=== PATIENT | female | born 1950 | race Caucasian/White ===

== ENCOUNTER 2021-03-03 13:48 | Emergency (ER) | payer MEDICARE ==
[~2021-03-03] VITALS: Ht 157.5 cm; Wt 67.1 kg
[2021-03-03] MEDS ORDERED: EUTHYROX100 MC1 PO (14:34)
[2021-03-03] MEDS ORDERED: HYDCHL12.5 PO (14:34)
[2021-03-03 14:58] LABS: BASOPHILS PERCENT AUTO 0 % (0-2); EOSINOPHILS ABSOLUTE AUTO 0.01 K/mm3 (0.00-0.68); EOSINOPHILS PERCENT AUTO 0 % (0-6); Hemoglobin 12.5 g/dL (11.5-16.0); IMMATURE GRAN ABSOLUTE AUTO 0.01 K/mm3 (0.00-0.10); IMMATURE GRAN PERCENT AUTO 0 % (0-1); LYMPHOCYTES ABSOLUTE AUTO 0.86 K/mm3 (0.84-5.20); LYMPHOCYTES PERCENT AUTO 32 % (21-46); MONOCYTES ABSOLUTE AUTO 0.45 K/mm3 (0.16-1.47); MONOCYTES PERCENT AUTO 17 % (4-13); Mean Corpuscular HGB 31.8 pg (26.0-34.0); Mean Corpuscular HGB Conc 33.8 g/dL (31.5-36.5); Mean Corpuscular Volume 94 fL (80-100); Mean Platelet Volume 10.5 fL (9.1-12.4); NEUTROPHILS ABSOLUTE AUTO 1.34 K/mm3 (1.96-9.15); NEUTROPHILS PERCENT AUTO 50 % (41-73); Platelet Count 147 K/mm3 (150-400); RDW Coefficient Variation 13.3 % (11.7-14.2); RDW Standard Deviation 46.6 fL (35.1-46.3); Red Blood Cell Count 3.93 M/mm3 (3.80-5.20); White Blood Cell Count 2.67 K/mm3 (4.00-11.30)
[2021-03-03 15:13] LABS: Alanine Aminotransfer (ALT/SGP 24 U/L (12-78); Albumin, Blood 3.5 g/dL (3.4-5.0); Alk Phos 76 U/L (50-136); Anion Gap 7 mmol/L (6-16); Aspartate Aminotrans (AST/SGOT 26 U/L (12-37); Bilirubin, Total 0.3 mg/dL (0.1-1.0); Blood Urea Nitrogen 26 mg/dL (8-24); Bun/Creatinine Ratio 25.2 (12.0-20.0); CO2, Blood 27 mmol/L (21-32); Calcium, Blood 8.8 mg/dL (8.5-10.1); Chloride, Blood 102 mmol/L (98-108); Creatinine, Blood 1.03 mg/dL (0.40-1.00); Globulin, Blood 3.4 g/dL (2.2-4.0); Glomerular Filtration Rate 56 (60-); Glucose, Blood 113 mg/dL (70-99); Potassium, Blood 3.9 mmol/L (3.5-5.5); Sodium, Blood 136 mmol/L (136-145); Total Protein, Blood 6.9 g/dL (6.4-8.2); Troponin I <0.015 ng/mL (0.000-0.040)
[2021-03-03 15:23] LABS: BAND PERCENT MAN 3 % (0-8); BASOPHILS PERCENT MAN 0 % (0-2); EOSINOPHILS ABSOLUTE MAN 0.02 K/mm3 (0.00-0.68); EOSINOPHILS PERCENT MAN 1 % (0-6); LYMPHOCYTES PERCENT MAN 30 % (21-46); MONOCYTES ABSOLUTE MAN 0.26 K/mm3 (0.16-1.47); MONOCYTES PERCENT MAN 10 % (4-13); NEUTROPHILS ABSOLUTE MAN 1.57 K/mm3 (1.96-9.15); SEG NEUTROPHILS PERCENT MAN 56 % (41-73); TOTAL CELLS COUNTED 100
== END 2021-03-03 16:36 | disposition home or self-care (01) ==
LOC: ER 13:48
PROVIDERS: Physician Assistant
DX: U07.1 COVID-19 (principal); J44.9 Chronic obstructive pulmonary disease, unspecified; I10 Essential (primary) hypertension
CPT/HCPCS: 36415; 71045; 80053; 84484; 85025; 93005; 93010; 94640; 99285-25

== ENCOUNTER 2021-04-08 12:36 | Inpatient (IN) | payer MEDICARE ==
[~2021-04-08] VITALS: Ht 160 cm; Wt 72.5 kg
[~2021-04-08 12:36] MED LIST: EUTHYROX100 MC1 PO; HYDCHL12.5 PO
[2021-04-08 13:26] LABS: BASOPHILS ABSOLUTE AUTO 0.04 K/mm3 (0.00-0.23); BASOPHILS PERCENT AUTO 1 % (0-2); EOSINOPHILS ABSOLUTE AUTO 0.37 K/mm3 (0.00-0.68); EOSINOPHILS PERCENT AUTO 5 % (0-6); Hematocrit 37.3 % (33.0-51.0); Hemoglobin 12.7 g/dL (11.5-16.0); IMMATURE GRAN ABSOLUTE AUTO 0.01 K/mm3 (0.00-0.10); IMMATURE GRAN PERCENT AUTO 0 % (0-1); LYMPHOCYTES ABSOLUTE AUTO 1.32 K/mm3 (0.84-5.20); LYMPHOCYTES PERCENT AUTO 19 % (21-46); MONOCYTES ABSOLUTE AUTO 0.62 K/mm3 (0.16-1.47); MONOCYTES PERCENT AUTO 9 % (4-13); Mean Corpuscular HGB 31.8 pg (26.0-34.0); Mean Corpuscular Volume 93 fL (80-100); Mean Platelet Volume 10.4 fL (9.1-12.4); NEUTROPHILS ABSOLUTE AUTO 4.63 K/mm3 (1.96-9.15); NEUTROPHILS PERCENT AUTO 66 % (41-73); Platelet Count 272 K/mm3 (150-400); White Blood Cell Count 6.99 K/mm3 (4.00-11.30)
[2021-04-08 13:50] LABS: Alanine Aminotransfer (ALT/SGP 50 U/L (12-78); Albumin, Blood 4.1 g/dL (3.4-5.0); Albumin/Globulin Ratio 1.1 (0.8-1.8); Alk Phos 90 U/L (50-136); Anion Gap 3 mmol/L (6-16); Aspartate Aminotrans (AST/SGOT 30 U/L (12-37); Bilirubin, Total 0.5 mg/dL (0.1-1.0); Blood Urea Nitrogen 15 mg/dL (8-24); Bun/Creatinine Ratio 24.3 (12.0-20.0); CO2, Blood 32 mmol/L (21-32); Calcium, Blood 9.3 mg/dL (8.5-10.1); Chloride, Blood 97 mmol/L (98-108); Creatinine, Blood 0.62 mg/dL (0.40-1.00); Globulin, Blood 3.6 g/dL (2.2-4.0); Glomerular Filtration Rate >60 (60-); Glucose, Blood 101 mg/dL (70-99); Potassium, Blood 4.3 mmol/L (3.5-5.5); Sodium, Blood 132 mmol/L (136-145); Total Protein, Blood 7.7 g/dL (6.4-8.2); Troponin I <0.015 ng/mL (0.000-0.040)
[2021-04-08] MEDS ORDERED: ZOLOFT50 MG PO (16:32)
[2021-04-08] MEDS ORDERED: TELM40 PO (16:34)
[2021-04-08] MEDS ORDERED: BUPROPION XL150 M1 PO (17:55)
[2021-04-08] MEDS ORDERED: Ventolin/Prove6.7 GM INH (17:57)
[2021-04-08] MEDS ORDERED: IPRAT-ALBUT 0.5-3 ML NEB (17:58)
[2021-04-08] MEDS ORDERED: CENTRUM SILVER1 EAC2 PO (18:12)
[2021-04-08] MEDS ORDERED: Vitamin B Comple1 EA PO (18:12)
[2021-04-08] MEDS ORDERED: ZINC50 M3 PO (18:12)
[2021-04-08] MEDS ORDERED: THERA-D2000 UNIT PO (18:13)
[2021-04-08] MEDS ORDERED: EUTHYROX88 MC1 PO (18:14)
--- NOTE | 2021-04-08 19:45 | NUR ---
RECEIVED REPORT FROM NOAH HILTON RN. PT ARRIVED TO 304 VIA GURNEY. PT TRANSFERRED SELF TO BED. RESP EVEN ON 2L VIA NC. AT BEDSIDE. WILL PROVIDE CARE T/O SHIFT. PT ORIENTED TO CALL LT SYSTEM.
--- NOTE | 2021-04-09 02:25 | NUR ---
PER TELE MONITOR PT HR DIPPED DOWN TO 35. ASSESSED PT, PT WOKE UP, ASSISTED HER TO THE BR AND BACK TO BED, HR AT 38. PT SOB, PLACED OXYGEN BACK ON AT 2L VIA NC. PER TELE MONITOR HR TOUCHES TO LOW 40'S THEN BACK DOWN TO THE UPPER 30'S. CALL LT IN REACH.
--- NOTE | 2021-04-09 02:54 | NUR ---
PT LAYING IN BED WITH 2L O2 VIA NC. CALL LT IN REACH.
--- NOTE | 2021-04-09 03:05 | NUR ---
PT IN BED, LIGHTHEADED AT REST AND SOB. CALL LT IN REACH.
--- NOTE | 2021-04-09 03:25 | NUR ---
ORDER RECEIVED TO TRANSFER PT TO ICU WITH PCU STATUS. REPORT CALLED AND GIVEN TO MARCIANO GIFT OFFICER.
--- NOTE | 2021-04-09 03:45 | NUR ---
PT TRANSFERRED TO ICU 12 VIA BED WITH ALL PERSONAL BELONGINGS.
--- NOTE | 2021-04-09 03:53 | NUR ---
DURING TRANSFER PT REPORTED FEELING CHEST DISCOMFORT. NOTIFIED MARCIANO STITCH BURNISHER.
--- NOTE | 2021-04-09 03:59 | NUR ---
CALLED AND NOTIFIED , GENEVIEVE THAT TOM HAD BEEN TRANSFERRED TO ICU ROOM 12 FOR CLOSER MONITORING.
[2021-04-09 05:23] LABS: Adenovirus Not Detected (NOT DETECT); Bordetella pertussis Not Detected (NOT DETECT); Chlamydophila pneumoniae Not Detected (NOT DETECT); Coronavirus 229E Not Detected (NOT DETECT); Coronavirus HKU1 Not Detected (NOT DETECT); Coronavirus NL63 Not Detected (NOT DETECT); Coronavirus OC43 Not Detected (NOT DETECT); Human Metapneumovirus Not Detected (NOT DETECT); Human Rhinovirus/Enterovirus Not Detected (NOT DETECT); Influenza A/2009-H1 Not Detected (NOT DETECT); Influenza A/H1 Not Detected (NOT DETECT); Influenza A/H3 Not Detected (NOT DETECT); Influenza B Not Detected (NOT DETECT); Mycoplasma pneumoniae Not Detected (NOT DETECT); Parainfluenza Virus 1 Not Detected (NOT DETECT); Parainfluenza Virus 2 Not Detected (NOT DETECT); Parainfluenza Virus 3 Not Detected (NOT DETECT); Parainfluenza Virus 4 Not Detected (NOT DETECT); Respiratory Syncytial Virus Not Detected (NOT DETECT); SARS-Cov-2 (COVID-19), BioFire Not Detected (NOT DETECT)
--- NOTE | 2021-04-09 06:21 | NUR ---
ASSUMED CARE/END OF SHIFT SUMMARY PT ARRIVED TO ICU AT 0340 VIA MEDICAL FLOOR BED AND TRANSFERED OVER TO ICU BED VIA SLIDE SHEET. PT IS ALERT/ORIENTED X4 AND ABLE TO MAKE HER NEEDS KNOWN USING THE CALL LIGHT APPROPRIATLY. PT C/O DYSPNEA UPON ARRIVAL TO ICU, RT IN ROOM AND PROVIDED INHALER WHICH PT STATED HELPED; DIMINISHED EXPIRATORY WHEEZES HEARD IN BILAT LOWER BASES; SPO2 >93% ON 2L NC; PRODUCTIVE COUGH NOTED; PT C/O DYSPNEA WITH EXERTION TOO. AFEBRILE. HR HIGH 30'S, LOW 40'S; PACER PADS ON PT AND ZOLL AT BEDSIDE BUT NOT CURRENTLY BEING USED; NO C/O CHEST PAIN. SBP 130-140'S. NPO SINCE ARRIVAL TO ICU; HYPOACTIVE BT; NO C/O NAUSEA. SALINE LOCKED. WILL REPORT TO AM RN WHEN AVAILABLE.
--- NOTE | 2021-04-09 07:32 | NUR ---
Assumed care of this pt this morning. She is a/o x 4 and denies any pain or discomfort. She is very [place]. Her HR remains in the 30-40's and she has the zoll pads in place. She reports some dizziness with movement. She is able to make her needs known and has her call light in reach.
--- NOTE | 2021-04-09 09:15 | NUR ---
The heart center and pacemaker clinics were both called to try and find out if this pt is on the schedule for a pacemaker today. They are not able to confirm if she is so MR Redmond from the heart center said he would call back when he found out the plan. Client Application Support Engineer just completed the ordered echo at the bedside. Pt's HR is currently 41 and she is resting in bed with her eyes closed.
--- NOTE | 2021-04-09 11:01 | NUR ---
Rod Piler is here now and has been updated on the pt status this morning. She is at the bedside explaing the plan for pacemaker placement.
--- NOTE | 2021-04-09 14:48 | NUR ---
Heart center nurse came to transport pt to heart center for pacemaker placement. The was with her and was assisted to the visitor waiting area.
--- NOTE | 2021-04-09 17:24 | NUR ---
Shift Summary Pt has been a/o x 4 all day. She has had no c/o pain but she has been inpatient about the wait time to go the heart center for her pacemaker. She is very [place]. The pt HR was in the 40's all morning dipping down into the 30's at times. The Dr's were notified of her status. Cardiology spoke with her about the pacemaker procedure and she was agreeable. The pt has 6 children, many of which have been calling all day. The son, Trevon has elected to be the main contact and he has been updated. The arrived at the start of visiting hours and he himslef walks with a cane and was assisted via w/c to the visitor waiting area for the length of her procedure. The pt is still in the heart center in procedure.
--- NOTE | 2021-04-09 18:28 | NUR ---
Heart center nurse called to say that they will be bringing the pt back to her room in the next few minutes.
--- NOTE | 2021-04-09 19:00 | NUR ---
ASSUMED CARE ASSUMED CARE OF PATIENT. AWAKE AND ALERT. VISITING WITH . ORIENTED X 3 AND COOPERATIVE WITH CARE. PT IS EXTREMELY HARD OF HEARING. REPOSITIONS SELF IN BED. MONITOR SHOWS PACED RHYTHM, RATE 96-98. BP STABLE. O2 2L NC- SATS STABLE. DENIES SOB OR DYSPNEA. C/O PAIN IN CHEST (PACEMAKER AND PERICARDIAL DRAIN SITES) WITH DEEP BREATHING AND MOVING. LEFT CHEST PACEMAKER SITE NOTED WITH DRSG D/I. PERICARDIAL DRAIN DRAINING TO PLEURIX BOTTLE- SEROUS DRAINAGE. NS INFUSING AT 100CC/HR PER ORDER. SEE SHIFT ASSESSMENT FOR FULL ASSESSMENT.
[2021-04-09 19:28] LABS: Hematocrit 36.9 % (33.0-51.0); Hemoglobin 12.3 g/dL (11.5-16.0)
[2021-04-10 03:38] LABS: BASOPHILS ABSOLUTE AUTO 0.04 K/mm3 (0.00-0.23); BASOPHILS PERCENT AUTO 0 % (0-2); EOSINOPHILS ABSOLUTE AUTO 0.14 K/mm3 (0.00-0.68); EOSINOPHILS PERCENT AUTO 1 % (0-6); Hematocrit 34.4 % (33.0-51.0); Hemoglobin 11.4 g/dL (11.5-16.0); IMMATURE GRAN ABSOLUTE AUTO 0.03 K/mm3 (0.00-0.10); IMMATURE GRAN PERCENT AUTO 0 % (0-1); LYMPHOCYTES ABSOLUTE AUTO 0.96 K/mm3 (0.84-5.20); LYMPHOCYTES PERCENT AUTO 8 % (21-46); MONOCYTES ABSOLUTE AUTO 0.97 K/mm3 (0.16-1.47); MONOCYTES PERCENT AUTO 8 % (4-13); Mean Corpuscular HGB 31.8 pg (26.0-34.0); Mean Corpuscular HGB Conc 33.1 g/dL (31.5-36.5); Mean Corpuscular Volume 96 fL (80-100); Mean Platelet Volume 10.4 fL (9.1-12.4); NEUTROPHILS ABSOLUTE AUTO 10.04 K/mm3 (1.96-9.15); NEUTROPHILS PERCENT AUTO 83 % (41-73); Platelet Count 219 K/mm3 (150-400); RDW Coefficient Variation 13.1 % (11.7-14.2); RDW Standard Deviation 46.5 fL (35.1-46.3); Red Blood Cell Count 3.58 M/mm3 (3.80-5.20); White Blood Cell Count 12.18 K/mm3 (4.00-11.30)
[2021-04-10 03:57] LABS: Alanine Aminotransfer (ALT/SGP 41 U/L (12-78); Albumin, Blood 3.3 g/dL (3.4-5.0); Alk Phos 74 U/L (50-136); Anion Gap 6 mmol/L (6-16); Aspartate Aminotrans (AST/SGOT 30 U/L (12-37); Bilirubin, Total 0.3 mg/dL (0.1-1.0); Blood Urea Nitrogen 13 mg/dL (8-24); CO2, Blood 25 mmol/L (21-32); Calcium, Blood 8.3 mg/dL (8.5-10.1); Chloride, Blood 105 mmol/L (98-108); Creatinine, Blood 0.65 mg/dL (0.40-1.00); Globulin, Blood 3.2 g/dL (2.2-4.0); Glomerular Filtration Rate >60 (60-); Glucose, Blood 118 mg/dL (70-99); Potassium, Blood 4.1 mmol/L (3.5-5.5); Sodium, Blood 136 mmol/L (136-145); Total Protein, Blood 6.5 g/dL (6.4-8.2)
--- NOTE | 2021-04-10 06:39 | NUR ---
SHIFT SUMMARY NO ACUTE CHANGES. SLEPT INTERMITTENTLY. CONTINUES WITH C/O PAIN AT PACEMAKER AND PERICARDIAL DRAIN SITES- MEDICATED WITH NORCO 5/325MG PO X 3 DOSES AND FENTANYL 50MCG IV X 1 DOSE WITH MODERATE RELIEF. MONITOR SHOWS CONTINUED VENTRICULAR PACED RHYTHM, RATE 80s-90s. BP STABLE. AFEBRILE. O2 2LNC, SATS STABLE. DYSPNEA NOTED WITH EXERTION. OCCASIONAL EXPIRATORY WHEEZES NOTED. LEFT CHEST PACEMAKER SITE WITH SOME BRUISING AND SLIGHT SWELLING NOTED. PERICARDIAL DRAIN WITH 100CC SEROUS DRAINAGE TOTAL. WILL REPORT TO ONCOMING RN WHEN AVAILABLE.
--- NOTE | 2021-04-10 08:12 | NUR ---
CARE OF PT ASSUMED AT 0700. PT AWAKE IN BED. DRAIN AND PACER SITE CHECKED WITH NIGHT RN. 150CC SS/PINK FLUID TO VAC. FENT 50MCG GIVEN FOR MID CHEST PAIN 8/10, WORSE WITH DEEP BREATH OR COUGH. DR CENTENO IN TO SEE PT THIS AM. PACER SITE DRSG CHANGED BY DR. DR CENTENO PULLED BACK SMALL AMT OF SS FLUID W SMALL CLOTS FROM 2 WAY VALVE. ORDERS TO PULL FROM VALVE USING SYRINGE Q2 TO REMOVE CLOTS. ORDERS FOR PT TO BE OOB TO CHAIR MOY W ASSIST, OKAY TO USE BEDSIDE COMMODE. ORDERS TO HOLD AM HTN MEDS. CHEST XRAY ORDERED. PT TO HAVE PARTIAL ECHO TODAY. PT HAS COUGH (CHRONIC), PT HAS SCATTERED INSP/EXP WHEEZES T/O, PT DENIES SOB WORSE THAN USUAL. PT BEING PACED BETWEEN 80-90BPM. SATS >90% ON 2L O2 VIA N/C (PT'S HOME O2 RX).
--- NOTE | 2021-04-10 10:08 | NUR ---
PT OOB TO COMMODE AND THEN TO CHAIR PER DR CENTENO. PT TOLERATED WELL. BP SLIGHTLY LOW IN CHAIR 84/65, RETAKEN IN BED 117/72. ~100CC OUTPUT SS (MORE RED) SINCE 0700 THIS AM. PALAK LEE AT BEDSIDE COMPLETING ECHO. WILL CALL DR JACOBO HEARN.
--- NOTE | 2021-04-10 10:33 | NUR ---
BP 95/52 W MAP 64. PT RESTING IN BED, NOT IN DISTRESS. ECHO COMPLETED. TECH ESTIMATES ABOUT 100CC AROUND HEART. DR CENTENO CALLED AND NOTIFIED, 1L BOLUS NS ORDERED.
--- NOTE | 2021-04-10 10:43 | NUR ---
PT'S BP HAS DROPPED TO 69/47 W MAP 56, [place] NS BOLUS STARTED. DR CENTENO AT BEDSIDE W ULTRASOUND. PT AWAKE AND ALERT, DOES NOT APPEAR TO BE IN DISTRESS.
--- NOTE | 2021-04-10 11:39 | NUR ---
PT IS RESPONDING TO FLUID BOLUS. DR CENTENO AT BEDSIDE. NEOSYNEPHRINE ORDERED TO BE ON STANDBY IF PT'S PRESSURE DROPS AFTER BOLUS. GOMEZ CATH 16F PLACED W/O ISSUES. UA SENT PER PROTOCOL. URINE CLEAR. POWERGLIDE PLACED TO NELSON. PT MAY BE TRANSFERED FOR POSSIBLE PATCH.
[2021-04-10 11:58] LABS: Source, Urine Catheter
--- NOTE | 2021-04-10 12:01 | NUR ---
BP REMAINS STABLE. STAT H&H ORDERED. PT WILL NOT BE TRANSFERED AT THIS TIME. DR CENTENO AT BEDSIDE TO SEE PT.
[2021-04-10 12:23] LABS: Appearance, Urine Clear (Clear); Bilirubin, Urine Neg (Neg); Blood, Urine Neg (Neg); Color, Urine Yellow (P-Yellow); Glucose Qualitative, Urine Neg (Neg); Ketones, Urine Neg (Neg); Leukocyte Esterase, Urine Neg (Neg); Nitrite, Urine Neg (Neg); Protein, Urine Neg (Neg); Urobilinogen, Urine NORM (Normal)
--- NOTE | 2021-04-10 13:02 | NUR ---
Echocardiogram performed.
[2021-04-10 13:52] LABS: Hematocrit 31.7 % (33.0-51.0); Hemoglobin 10.7 g/dL (11.5-16.0)
--- NOTE | 2021-04-10 14:39 | NUR ---
PT VISITING W DAUGHTER AT BEDSIDE. BP STABLE. NORCO GIVEN FOR CHEST DISCOMFORT 05/14. PT APPEARS TO BE IN NO DISTRESS. ~280 TOTAL OUTPUT TO VACUUM BOTTLE.
--- NOTE | 2021-04-10 16:06 | NUR ---
PT'S DAUGHTER AT BEDSIDE. PT AND DAUGHTER HAD SEVERAL QUESTIONS. FAMILY PROVIDED EDUCATION REQARDING 3RD DEGREE HEART BLOCK, PACEMAKER PLACEMENT, AND PERICARDIAL EFFUSION WITH DRAIN. QUESTIONS ANSWERED. DR CENTENO NOTIFIED THAT DAUGHTER WOULD LIKE TO SPEAK WITH HIM IF POSSIBLE. PT'S DAUGHTER ALSO REQUESTED MEDICAL RECORDS. PT'S DAUGHTER DIRECTED TO CONTACT MEDICAL RECORDS/ AND OR PATIENT PORTAL SYSTEM.
--- NOTE | 2021-04-10 16:32 | NUR ---
DR CENTENO AT BEDSIDE SPEAKING WITH PATIENT AND PT'S DAUGHTER.
--- NOTE | 2021-04-10 17:48 | NUR ---
T/O TO CLAMP PERICARDIAL DRAIN, ORDER VARIFIED/CLARIFIED THAT DR CENTENO WANTS DRAIN CLAMPED AND NOT PLACED TO GRAVITY OR TO CONTINUE TO VACUUM. PERICARDIAL DRAIN CLAMPED AT 1749. 325CC TOTAL OUTPUT TO VACUUM CONTAINER, ~175CC THIS SHIFT (SS FLUID, MORE RED THAN YELLOW). PT SITTING UP IN BED EATING DINNER. BP REMAINS STABLE.
--- NOTE | 2021-04-10 18:46 | NUR ---
DR CENTENO AT BEDSIDE CHECKING ON PT AND UPDATING PT AND PT'S DAUGHTER.
--- NOTE | 2021-04-10 18:56 | NUR ---
VACUUM CONTAINER CHANGED PER DR CENTENO BUT REMAINS CLAMPED PER DR CENTENO. NEW ORDERS PLACED TO UNCLAMP AT 2200 AND LET PERICARDIAL DRAIN DRAIN FOR 30MIN. RN TO THEN CLAMP DRAIN AND CALL DR CENTENO WITH OUTPUT RESULTS.
--- NOTE | 2021-04-10 23:07 | NUR ---
UNCLAMPED PERICARDIAL DRAIN FOR 30MIN - RECHECKED VACUTAINER WITH VERY MINIMAL OUTPUT IN CONTAINER. CALLED DR CENTENO NOTIFYING HIM OF OUTCOME. HE REQUESTED TO USE 10CC SYRINGE AND PULL FROM PORT WITH STOPCOCK OPEN TO LUERLOCK PORT. RN DISCARDED ONLY 1CC - NOTIFIED MD - MD INSTRUCTED TO KEEP DRAIN CLAMPED AND MD TO SEE PT IN AM. VSS. WILL CONTINUE TO MONITOR.
[2021-04-11 03:34] LABS: BASOPHILS ABSOLUTE AUTO 0.03 K/mm3 (0.00-0.23); BASOPHILS PERCENT AUTO 0 % (0-2); EOSINOPHILS ABSOLUTE AUTO 0.16 K/mm3 (0.00-0.68); EOSINOPHILS PERCENT AUTO 2 % (0-6); Hemoglobin 10.4 g/dL (11.5-16.0); IMMATURE GRAN ABSOLUTE AUTO 0.03 K/mm3 (0.00-0.10); IMMATURE GRAN PERCENT AUTO 0 % (0-1); LYMPHOCYTES PERCENT AUTO 18 % (21-46); MONOCYTES ABSOLUTE AUTO 1.11 K/mm3 (0.16-1.47); MONOCYTES PERCENT AUTO 10 % (4-13); Mean Corpuscular HGB Conc 33.5 g/dL (31.5-36.5); Mean Corpuscular Volume 95 fL (80-100); Mean Platelet Volume 10.1 fL (9.1-12.4); NEUTROPHILS PERCENT AUTO 70 % (41-73); Platelet Count 178 K/mm3 (150-400); RDW Coefficient Variation 13.2 % (11.7-14.2); RDW Standard Deviation 46.5 fL (35.1-46.3); Red Blood Cell Count 3.25 M/mm3 (3.80-5.20); White Blood Cell Count 11.03 K/mm3 (4.00-11.30)
[2021-04-11 03:50] LABS: Albumin, Blood 2.9 g/dL (3.4-5.0); Anion Gap 4 mmol/L (6-16); Blood Urea Nitrogen 10 mg/dL (8-24); Bun/Creatinine Ratio 19.3 (12.0-20.0); CO2, Blood 27 mmol/L (21-32); Calcium, Blood 8.2 mg/dL (8.5-10.1); Chloride, Blood 106 mmol/L (98-108); Creatinine, Blood 0.52 mg/dL (0.40-1.00); Glomerular Filtration Rate >60 (60-); Glucose, Blood 122 mg/dL (70-99); Phosphorus, Blood 2.4 mg/dL (2.5-4.9); Potassium, Blood 3.6 mmol/L (3.5-5.5); Sodium, Blood 137 mmol/L (136-145)
--- NOTE | 2021-04-11 06:08 | NUR ---
SHIFT SUMMARY PT RESTED WELL THROUGH THE NIGHT. ALERT AND ORIENTED, ABLE TO MAKE NEEDS KNOWN. COOPERATIVE WITH PLAN OF CARE. SATS >90% ON 3LNC. TELE NSR/SINUS JULIO. GOMEZ IN PLACE, DRAINING TO GRAVITY, LONI CARE PERFORMED. NO BM. PAIN X2 - SEE EMAR. SEE PREVIOUS NOTE ABOUT PERICARDIAL DRAIN UNCLAMPING. PT DID HAVE EPISODE OF ANXIOUSNESS, WOKE UP IN A PANIC AND APPEARED TO BE IN RESP DISTRESS, BREATHING TREATMENT GIVEN, PAIN MEDS GIVEN, READJUSTED IN BED, EVENTUALLY CALMED DOWN AND WAS ABLE TO SLEEP REST OF NIGHT. VSS. CALL LIGHT WITHIN REACH, BED IN LOWEST POSITION. WILL CONTINUE TO MONITOR.
--- NOTE | 2021-04-11 10:10 | NUR ---
ECHOCARDIOGRAM IN PROGRESS
--- NOTE | 2021-04-11 10:54 | NUR ---
Echocardiogram completed.
--- NOTE | 2021-04-11 12:05 | NUR ---
Dr. West here; states that pt has no pericardial effusion, will have drain removed *pericardial) tomorrow, and most likely discharge home on Thursday. Assisted pt up to toilet to void, unfortunately missed the hat and unmeasured. Then to chair to eat lunch. Has no vocalized comcplaints at this time, appears comfortable.
--- NOTE | 2021-04-11 12:14 | NUR ---
Call to daughter Tamika to give her an update following Dr. West's visit this noon time. She states that she is very appreciative of the information.
--- NOTE | 2021-04-11 15:35 | NUR ---
Pt's daughter came out of room, stated that pt c/o chest feeling "weird, and maybe tight". I spoke with patient and she waved her hand and shook her head at her daughter, said that it wasn't anything. Lung sounds auscultated, scattered wheezing noted throughout, no different from this morning assessment, and also fine crackles noted in bases. Spo2 95% on 2 l/min O2, pt's home dose. Pt is pleasantly conversant, no apparent distress. RR 19/min while sitting up in chair. Noted heart rate 119-120 bpm, appears to be possibly sinus tachycardia but p waves unable to distinguish.
--- NOTE | 2021-04-11 15:59 | NUR ---
Call to Dr. West in laborer syrup machine regarding rhythm change, tachycardia 122 bpm and holding. Orders to aspirate fluid from pericardial drain. 1.2 cc aspirated from drain, and heart rate went right down to 91 bpm, back to previously observed rhythm this morning. Blood pressure also imprved with Map now 84, B/P 119/64. pT States that she is feeling fine. Assisted back to bed from chair as she is c/o feeling tired. Talking with her daughter who is at the bedside.
--- NOTE | 2021-04-11 16:10 | NUR ---
Dr. Garciaib here to see the pt at the bedside, evaluating pt with ultrasound.
--- NOTE | 2021-04-11 16:12 | NUR ---
Pt to transfer to PCU 12; telephone report given to Asuncion Mejia RN
--- NOTE | 2021-04-11 18:26 | NUR ---
SHIFT SUMMARY ASSUMED CARE FROM ICU. S/P PACEMAKER PLACEMENT YESTERDAY. DRESSING CHANED TODAY BY DEVELOPER PROGRAMMER. PERICARDIAL DRAIN IN PLACE AND CLAMPED PER CARDIOLOGY WILL REMOVE TOMORROW. 2L 02 VIA NC PER PTS BASELINE 02, VSS, ATRIAL PACED. WILL CONTINUE TO MONITOR AND TREAT UNTIL CHANGE OF SHIFT.
--- NOTE | 2021-04-11 21:38 | NUR ---
Confirmed with Dr. West this evening patient needs to be in an left arm sling post pace maker, patient has a medium sling applied and education given to patient.
--- NOTE | 2021-04-12 05:44 | NUR ---
PATIENT IS ALERT AND ORIENTATED, HARD OF HEARING, HEARING AID ON TABLE TONIGHT, ABLE TO MAKE NEEDS KNOWN, CALL LIGHT WITHIN REACH, CALLS APPROPRIATELY AND STAND AND PIVOT TO BEDSIDE COMMODE, SLING IN PLACE ON LEFT ARM, BLOOD PRESSURES TAKEN ON RIGHT FOREARM C/O 8/10 PAIN X 2 THIS SHIFT RECEIVED NORCO 5/325MG PO WITH GOOD RESULTS.
--- NOTE | 2021-04-12 07:00 | NUR ---
recvd report from previous shift moni kay. pt sitting up in bed, a/o x 4, pleasant/cooperative, [place] with malgorzata hearing aids in. pt denies pain at this time. NC 2l per baseline. call light within rech, bed in lowest position, bed rails up x 2
--- NOTE | 2021-04-12 11:10 | NUR ---
Echocardiogram completed.
--- NOTE | 2021-04-12 12:40 | NUR ---
pt sitting on side of bed eating lunch, bed in lowest position, call light within reach
--- NOTE | 2021-04-12 14:00 | NUR ---
Dr Quinteros in room to remove drain. pt's and nursing staff in room.
--- NOTE | 2021-04-12 15:56 | NUR ---
pt resting, watching television. pt's visiting
--- NOTE | 2021-04-12 18:39 | NUR ---
SHIFT SUMMARY: VSS, NO ACUTE CHANGES; PT UP TO SIDE OF BED FOR MEALS, HAS BEEN UP IN ROOM WITH SBA. PT DOES HAVE SOB WITH EXERTION, HAS REMAINED ON 2L NC T/O SHIFT PER HER BASELINE WITH SPO2 >90%, HIGH 97%. PT TOLERATED PO INTAKE, HAS VOIDED >300 ML THIS SHIFT, HAS USED BEDSIDE COMMODE. PT REMAINED PLEASANT/COOPERATIVE. DR CENTENO REMOVED DRAIN POST PACEMAKER INSERTION IN ROOM THIS SHIFT WNL. PT REPORTS PAIN AT 5-7/10 CHEST, REDUCED FOLLOWING DRAIN REMOVAL TO 3-5/10. PT'S VISITED THIS SHIFT.
--- NOTE | 2021-04-13 07:18 | NUR ---
SHIFT SUMMARY S/P PACEMAKER PLACEMENT, A/O X4, VSS, TOLERATING PO, VOIDING, AMBULATING INDEPENDENTLY, REPORTS SORE/ACHE FROM PACER PLACEMENT SITE, PLAN TO DC TODAY. NO ACUTE EVENTS THIS SHIFT. CALL LIGHT IN REACH, REPORT GIVEN TO DAY RN.
--- NOTE | 2021-04-13 12:13 | NUR ---
Echocardiogram completed.
[2021-04-13] MEDS ORDERED: CEPH500 PO (13:55)
[2021-04-13] MEDS ORDERED: FURO40 PO (13:56)
[2021-04-13] MEDS ORDERED: KLOR-CON 1010 ME3 PO (13:57)
[2021-04-13] MEDS ORDERED: Nicoderm Cq1 EACH TOP (13:57)
--- NOTE | 2021-04-13 17:05 | NUR ---
PATIENT DISCHARGE: PATIENT DISCHARGED TO HOME THIS SHIFT. MEDICATION RECONCILIATION COMPKLETED; MED LIST FAXED TO [facility]. DISCHARGE EDUCATION COMPLETED WITH PATIENT AND FAMILY. PATIENT TRANSPORTED TO EXIT BY [facility] STAFF WITH WHEELCHAIR AT 1702. PATIENT DEPARTED [facility] VIA PRIVATE AUTO.
== END 2021-04-13 17:05 | disposition home or self-care (01) | DRG 243 ==
LOC: ER 12:36 → MEDS 12:37 → ER 19:37 → MEDS 19:45 → ICUW 04-09 03:38 → PCU 04-11 16:45
PROVIDERS: Family Medicine; Internal Medicine; Internal Medicine Cardiovascular Disease; Physician Assistant; ADMIT Internal Medicine
PROC: 0JH606Z Insertion of Pacemaker, Dual Chamber into Chest Subcutaneous Tissue and Fascia, Open Approach (ICD-10-PCS; principal; 2021-04-09)
PROC: 02H63JZ Insertion of Pacemaker Lead into Right Atrium, Percutaneous Approach (ICD-10-PCS; 2021-04-09)
PROC: 02HK3JZ Insertion of Pacemaker Lead into Right Ventricle, Percutaneous Approach (ICD-10-PCS; 2021-04-09)
PROC: 0W9D30Z Drainage of Pericardial Cavity with Drainage Device, Percutaneous Approach (ICD-10-PCS; 2021-04-09)
DX: I44.2 Atrioventricular block, complete (principal); E87.1 Hypo-osmolality and hyponatremia; I31.3 Pericardial effusion (noninflammatory); I97.190 Other postprocedural cardiac functional disturbances following cardiac surgery; Z86.16 Personal history of COVID-19; J44.9 Chronic obstructive pulmonary disease, unspecified; F32.9 Major depressive disorder, single episode, unspecified; D72.828 Other elevated white blood cell count; E03.9 Hypothyroidism, unspecified; Z20.822 Contact with and (suspected) exposure to COVID-19; I10 Essential (primary) hypertension; Z90.710 Acquired absence of both cervix and uterus; F17.210 Nicotine dependence, cigarettes, uncomplicated; Z79.899 Other long term (current) drug therapy; D64.9 Anemia, unspecified
CPT/HCPCS: 0202U; 33016; 33208; 33210; 36415; 51702; 71045; 71046; 76937; 80053; 80069; 81003; 83880; 84443; 84484; 85014; 85018; 85025; 93005; 93010; 93306; 93308; 93321; 94640; 94664; 94760; 96374-59; 99152; 99153; 99285-25; A9270; C1729; C1751; C1769; C1781; C1785; C1894; C1898; G0378; J0360; J0461; J0690; J1642; J1644; J1940; J2250; J2370; J2720; J3010; J7030; J7040; Q9967

== ENCOUNTER 2022-08-11 17:08 | Inpatient (IN) | payer MEDICARE ==
[~2022-08-11] VITALS: Ht 157.5 cm; Wt 61.9 kg
[~2022-08-11 17:08] MED LIST changes: +BUPROPION XL150 M1 PO; +CENTRUM SILVER1 EAC2 PO; +CEPH500 PO; +COMBIVENT RESPIM4 G1 INH; +EUTHYROX88 MC1 PO; +FURO40 PO; +IPRAT-ALBUT 0.5-3 ML NEB; +KLOR-CON 1010 ME3 PO; +Nicoderm Cq1 EACH TOP; +PRED20 PO; +TELM40 PO; +THERA-D2000 UNIT PO; +Ventolin/Prove6.7 GM INH; +Vitamin B Comple1 EA PO; +ZINC50 M3 PO; +ZOLOFT50 MG PO; +ZYRTEC10 M1 PO
[2022-08-11] MEDS ORDERED: HYDCHL25 PO (17:21)
[2022-08-11] MEDS ORDERED: ALBU8HFA2 INH (17:22)
[2022-08-11] MEDS ORDERED: TORSE20 PO (17:23)
[2022-08-11] MEDS ORDERED: BREO ELLIPTA 11 EAC1 INH (17:24)
[2022-08-11] MEDS ORDERED: SPIRIVA RESPIMAT4 G3 INH (17:25)
[2022-08-11] MEDS ORDERED: BUPROPION XL150 M1 PO (17:26)
[2022-08-11] MEDS ORDERED: ZAFI20 PO (17:27)
[2022-08-11] MEDS ORDERED: Aspir 8181 MG PO (17:27)
[2022-08-11 17:42] LABS: Hematocrit 39.2 % (33.0-51.0); Hemoglobin 13.1 g/dL (11.5-16.0); Mean Corpuscular HGB 30.2 pg (26.0-34.0); Mean Corpuscular HGB Conc 33.4 g/dL (31.5-36.5); Mean Corpuscular Volume 90 fL (80-100); Mean Platelet Volume 9.4 fL (9.1-12.4); Platelet Count 250 K/mm3 (150-400); RDW Coefficient Variation 12.8 % (11.7-14.2); RDW Standard Deviation 42.7 fL (35.1-46.3); Red Blood Cell Count 4.34 M/mm3 (3.80-5.20); White Blood Cell Count 5.81 K/mm3 (4.00-11.30)
[2022-08-11 18:01] LABS: Albumin, Blood 3.4 g/dL (3.4-5.0); Albumin/Globulin Ratio 1.1 (0.8-1.8); BASOPHILS PERCENT MAN 0 % (0-2); Bilirubin, Total 0.2 mg/dL (0.1-1.0); Bun/Creatinine Ratio 32.7 (12.0-20.0); Calcium, Blood 9.3 mg/dL (8.5-10.1); Creatinine, Blood 0.49 mg/dL (0.40-1.00); EOSINOPHILS PERCENT MAN 0 % (0-6); Globulin, Blood 3.1 g/dL (2.2-4.0); LYMPHOCYTES % ATYPICAL MANUAL 5 % (0-0); LYMPHOCYTES PERCENT MAN 14 % (21-46); MONOCYTES ABSOLUTE MAN 0.63 K/mm3 (0.16-1.47); MONOCYTES PERCENT MAN 11 % (4-13); NEUTROPHILS ABSOLUTE MAN 4.06 K/mm3 (1.96-9.15); Potassium, Blood 3.5 mmol/L (3.5-5.5); SEG NEUTROPHILS PERCENT MAN 70 % (41-73); TOTAL CELLS COUNTED 100; Total Protein, Blood 6.5 g/dL (6.4-8.2)
[2022-08-11 21:10] LABS: Influenza B, PCR NEGATIVE (NEGATIVE); Resp Syncytial Virus, PCR NEGATIVE (NEGATIVE); SARS-Cov-2 (COVID-19) PCR, MMC NEGATIVE (NEGATIVE)
[2022-08-11 21:11] LABS: Influenza A, PCR POSITIVE (NEGATIVE)
[2022-08-12 05:26] LABS: BASOPHILS PERCENT AUTO 0 % (0-2); EOSINOPHILS PERCENT AUTO 0 % (0-6); Hemoglobin 13.1 g/dL (11.5-16.0); IMMATURE GRAN ABSOLUTE AUTO 0.01 K/mm3 (0.00-0.10); IMMATURE GRAN PERCENT AUTO 0 % (0-1); LYMPHOCYTES ABSOLUTE AUTO 0.41 K/mm3 (0.84-5.20); LYMPHOCYTES PERCENT AUTO 15 % (21-46); MONOCYTES ABSOLUTE AUTO 0.09 K/mm3 (0.16-1.47); MONOCYTES PERCENT AUTO 3 % (4-13); Mean Corpuscular HGB Conc 34.5 g/dL (31.5-36.5); Mean Corpuscular Volume 90 fL (80-100); Mean Platelet Volume 9.5 fL (9.1-12.4); NEUTROPHILS ABSOLUTE AUTO 2.17 K/mm3 (1.96-9.15); NEUTROPHILS PERCENT AUTO 81 % (41-73); Platelet Count 250 K/mm3 (150-400); RDW Coefficient Variation 13.1 % (11.7-14.2); RDW Standard Deviation 43.1 fL (35.1-46.3); Red Blood Cell Count 4.23 M/mm3 (3.80-5.20); White Blood Cell Count 2.68 K/mm3 (4.00-11.30)
[2022-08-12 06:15] LABS: Albumin, Blood 3.2 g/dL (3.4-5.0); Albumin/Globulin Ratio 0.9 (0.8-1.8); Bilirubin, Total 0.3 mg/dL (0.1-1.0); Bun/Creatinine Ratio 30.9 (12.0-20.0); Creatinine, Blood 0.45 mg/dL (0.40-1.00); Globulin, Blood 3.4 g/dL (2.2-4.0); Potassium, Blood 4.2 mmol/L (3.5-5.5); Total Protein, Blood 6.6 g/dL (6.4-8.2)
[2022-08-13 06:02] LABS: BASOPHILS PERCENT AUTO 0 % (0-2); EOSINOPHILS PERCENT AUTO 0 % (0-6); Hematocrit 40.3 % (33.0-51.0); Hemoglobin 13.3 g/dL (11.5-16.0); IMMATURE GRAN ABSOLUTE AUTO 0.03 K/mm3 (0.00-0.10); IMMATURE GRAN PERCENT AUTO 0 % (0-1); LYMPHOCYTES ABSOLUTE AUTO 0.63 K/mm3 (0.84-5.20); LYMPHOCYTES PERCENT AUTO 9 % (21-46); MONOCYTES PERCENT AUTO 4 % (4-13); Mean Corpuscular HGB 29.9 pg (26.0-34.0); Mean Corpuscular Volume 91 fL (80-100); Mean Platelet Volume 9.5 fL (9.1-12.4); NEUTROPHILS ABSOLUTE AUTO 5.98 K/mm3 (1.96-9.15); NEUTROPHILS PERCENT AUTO 86 % (41-73); Platelet Count 284 K/mm3 (150-400); RDW Coefficient Variation 13.1 % (11.7-14.2); RDW Standard Deviation 42.9 fL (35.1-46.3); Red Blood Cell Count 4.45 M/mm3 (3.80-5.20); White Blood Cell Count 6.94 K/mm3 (4.00-11.30)
[2022-08-13 06:26] LABS: Albumin, Blood 3.2 g/dL (3.4-5.0); Bilirubin, Total 0.3 mg/dL (0.1-1.0); Bun/Creatinine Ratio 49.4 (12.0-20.0); Calcium, Blood 9.3 mg/dL (8.5-10.1); Creatinine, Blood 0.57 mg/dL (0.40-1.00); Globulin, Blood 3.2 g/dL (2.2-4.0); Potassium, Blood 3.7 mmol/L (3.5-5.5); Total Protein, Blood 6.4 g/dL (6.4-8.2)
[2022-08-13] MEDS ORDERED: OSEL75CA PO (15:36)
[2022-08-13] MEDS ORDERED: PRED20 PO (15:36)
== END 2022-08-13 16:31 | disposition home or self-care (01) | DRG 193 ==
LOC: ER 17:08 → MEDS 19:59
PROVIDERS: Emergency Medicine; Family Medicine; Student in an Organized Health Care Education/Training Program; ADMIT Internal Medicine
DX: J10.1 Influenza due to other identified influenza virus with other respiratory manifestations (principal); J96.21 Acute and chronic respiratory failure with hypoxia; J44.1 Chronic obstructive pulmonary disease with (acute) exacerbation; E87.3 Alkalosis; I44.2 Atrioventricular block, complete; F32.A Depression, unspecified; E03.9 Hypothyroidism, unspecified; I50.9 Heart failure, unspecified; I11.0 Hypertensive heart disease with heart failure; F41.9 Anxiety disorder, unspecified; F17.210 Nicotine dependence, cigarettes, uncomplicated; Z20.822 Contact with and (suspected) exposure to COVID-19; Z98.890 Other specified postprocedural states; Z91.040 Latex allergy status; Z95.0 Presence of cardiac pacemaker; Z88.2 Allergy status to sulfonamides; Z88.8 Allergy status to other drugs, medicaments and biological substances; Z90.710 Acquired absence of both cervix and uterus; Z79.899 Other long term (current) drug therapy; Z79.51 Long term (current) use of inhaled steroids; Z79.52 Long term (current) use of systemic steroids; Z79.82 Long term (current) use of aspirin; Z86.16 Personal history of COVID-19; Z87.01 Personal history of pneumonia (recurrent)
CPT/HCPCS: 0241U; 36415; 71046; 80053; 83880; 84484; 85025; 93005; 93010; 94640; 94644; 94664; 94760; A9270; J1650; J2930

== ENCOUNTER 2024-10-12 10:25 | Day surgery (SDC) | payer MEDICARE ==
[~2024-10-12] VITALS: Ht 157.5 cm; Wt 62.1 kg
[~2024-10-12 10:25] MED LIST changes: +ALBU8HFA2 INH; +Aspir 8181 MG PO; +BREO ELLIPTA 11 EAC1 INH; +Balanced Salt Epinephrine Irrigation Solution 500 mL IR SCH; +HYDCHL25 PO; +Lidocaine HCl/Pf 1% 5 ML VIAL XX SCH; +Moxifloxacin HCL 0.5 MG/0.1 ML 0.4MLSYR LEFTEYE SCH; +OSEL75CA PO; +PHENYLEPHRINE\\TROPICAMIDE\\TETRACAINE OPHTHALMIC DILATING SOLN LEFTEYE PRN; +Povidone-Iodine 450 DROP/30 ML Solution LEFTEYE SCH; +Povidone-Iodine 450 DROP/30 ML Solution ONE; +SPIRIVA RESPIMAT4 G3 INH; +TORSE20 PO; +Tetracaine HCl/Pf 0.5% Opth Soln 4 ml ONE; +ZAFI20 PO
[2024-10-12] MEDS ORDERED: Diazepam 5 MG Tab ONE (11:07)
[2024-10-12] MEDS ORDERED: Diazepam 2 MG Tab ONE ×2 (11:07→11:40)
--- NOTE | 2024-10-12 11:21 | NUR ---
10/12/24 1121 Jodi High 1105: ANXIETY 02/11 PER PATIENT 1117: 7 MG PO VALIUM PER ORDERS GIVEN
[2024-10-12] MEDS ORDERED: BREZTRI AEROS10.7 GM (11:26)
[2024-10-12] MEDS ORDERED: JARDIANCE10 MG PO (11:27)
[2024-10-12] MEDS ORDERED: EUTHYROX75 MC1 PO (11:27)
[2024-10-12] MEDS ORDERED: HYDCHL25 (11:27)
[2024-10-12] MEDS ORDERED: IPRAT-ALBUT 0.5-3 ML (11:32)
[2024-10-12] MEDS ORDERED: ZOLOFT50 MG PO (11:33)
[2024-10-12] MEDS ORDERED: POTASSIUM (11:34)
[2024-10-12] MEDS ORDERED: ZINC15 (11:34)
[2024-10-12] MEDS ORDERED: VITAMIN D (11:34)
[2024-10-12 12:26] VITALS: BP 150/82
== END 2024-10-12 12:40 | disposition home or self-care (01) ==
LOC: ORSCSDS 10:25
PROVIDERS: Student in an Organized Health Care Education/Training Program
PROC: 08RK3JZ Replacement of Left Lens with Synthetic Substitute, Percutaneous Approach (ICD-10-PCS; principal; 2024-10-12 12:00)
DX: H25.813 Combined forms of age-related cataract, bilateral (principal); H35.89 Other specified retinal disorders; I10 Essential (primary) hypertension; Z95.0 Presence of cardiac pacemaker; J44.9 Chronic obstructive pulmonary disease, unspecified; E03.9 Hypothyroidism, unspecified; F17.210 Nicotine dependence, cigarettes, uncomplicated; Z79.899 Other long term (current) drug therapy
CPT/HCPCS: A9270; V2632

== ENCOUNTER 2024-10-18 09:00 | Day surgery (SDC) | payer MEDICARE ==
[~2024-10-18] VITALS: Ht 157.5 cm; Wt 61.9 kg
[~2024-10-18 09:00] MED LIST changes: +BREZTRI AEROS10.7 GM; +EUTHYROX75 MC1 PO; +HYDCHL25; +IPRAT-ALBUT 0.5-3 ML; +JARDIANCE10 MG PO; -Moxifloxacin HCL 0.5 MG/0.1 ML 0.4MLSYR LEFTEYE SCH; +Moxifloxacin HCL 0.5 MG/0.1 ML 0.4MLSYR RIGHTEYE SCH; -PHENYLEPHRINE\\TROPICAMIDE\\TETRACAINE OPHTHALMIC DILATING SOLN LEFTEYE PRN; +PHENYLEPHRINE\\TROPICAMIDE\\TETRACAINE OPHTHALMIC DILATING SOLN RIGHTEYE PRN; +POTASSIUM; -Povidone-Iodine 450 DROP/30 ML Solution LEFTEYE SCH; +Povidone-Iodine 450 DROP/30 ML Solution RIGHTEYE SCH; +VITAMIN D; +ZINC15
[2024-10-18] MEDS ORDERED: Diazepam 2 MG Tab ONE ×2 (09:24→10:10)
[2024-10-18] MEDS ORDERED: Diazepam 5 MG Tab ONE (09:24)
[2024-10-18 10:49] VITALS: BP 123/71
== END 2024-10-18 11:02 | disposition home or self-care (01) ==
LOC: ORSCSDS 09:00
PROVIDERS: Student in an Organized Health Care Education/Training Program
PROC: 08RJ3JZ Replacement of Right Lens with Synthetic Substitute, Percutaneous Approach (ICD-10-PCS; principal; 2024-10-18 10:30)
DX: H25.811 Combined forms of age-related cataract, right eye (principal); Z96.1 Presence of intraocular lens; H35.89 Other specified retinal disorders; I10 Essential (primary) hypertension; J44.9 Chronic obstructive pulmonary disease, unspecified; E03.9 Hypothyroidism, unspecified; F17.210 Nicotine dependence, cigarettes, uncomplicated; Z79.899 Other long term (current) drug therapy
CPT/HCPCS: A9270; V2632